=== PATIENT | male | born 1970 | race Caucasian/White ===

== ENCOUNTER 2018-10-14 18:30 | Emergency (ER) | payer SELFPAY ==
[2018-10-14 18:35] VITALS: BP 122/83; PULSE 90; RESP 15; TEMP 36.3; O2SAT 94
[2018-10-14 18:47] VITALS: RESP 16
[2018-10-14] MEDS: Normal Saline Flush 10 ML SYR IVP (19:16)
[2018-10-14] MEDS: Normal Saline 1,000 ML 1000 ML IV (19:16)
[2018-10-14 19:21] LABS: Abs Immature Grans 0.01 k/cumm (0.0-0.09); Absolute Basophil Count 0.05 k/cumm (0.0-0.2); Absolute Eosinophil Count 0.13 k/cumm (0.0-0.7); Absolute Lymphocyte Count 3.33 k/cumm (1.2-3.4); Basophils % 0.5; Eosinophils % 1.4; HGB 15.8 g/dL (13.5-17.5); Immature Grans % 0.1; Lymphocytes % 36.1; Mean Corp. HGB Concentration 35.1 g/dL (32.0-36.0); Mean Corpuscular Hemoglobin 31.5 pg (27.0-33.0); Mean Corpuscular Volume 89.8 fL (80-95); Mean Platelet Volume 9.1 fL (8.0-11.0); Monocytes % 11.9; Platelet Count 293 x1000/uL (130-400); RBC 5.01 m/cumm (4.50-6.00); RBC Distribution Width 11.8 % (11.8-14.1); White Blood Cell Count 9.22 k/cumm (4.4-10.8)
[2018-10-14 19:34] LABS: ALT 49 U/L (12-78); AST 36 U/L (15-37); Albumin 4.3 g/dL (3.4-5.0); Alkaline Phosphatase 62 U/L (46-116); Anion Gap 8.3 mmol/L (3-11); BUN 11 mg/dL (7-18); CO2 29.7 mmol/L (21.0-32.0); CREATININE 0.84 mg/dL (0.70-1.30); Calcium 9.5 mg/dL (8.5-10.1); Chloride 102 mmol/L (98-107); Glucose 121 mg/dL (70-100); Potassium 3.7 mmol/L (3.5-5.1); Sodium 140 mmol/L (136-145); Total Protein 7.8 g/dL (6.4-8.2)
[2018-10-14 19:43] LABS: Magnesium 1.9 mg/dL (1.8-2.4); TSH (W/Ref FT4) 1.62 uIU/mL (0.358-3.74)
[2018-10-14 19:53] LABS: ETHANOL BLOOD < 3.0 mg/dL (<3)
[2018-10-14 20:01] LABS: Acetaminophen < 2 ug/mL (10-30); Salicylate < 2.8 mg/dL (2.8-20.0)
[2018-10-14 21:27] LABS: Bilirubin Negative (Negative); Blood Negative (Negative); Clarity Clear; Glucose Negative (Negative); Ketones 40 mg/dL (Negative); Leukocyte Esterase Negative (Negative); Nitrite Negative (Negative); Urobilinogen 0.2 EU/dL (Up TO 0.2)
[2018-10-14 21:40] LABS: *AMPHETAMINES SCREEN URINE Negative (Negative); *BARBITURATES SCREEN URINE Negative (Negative); *BENZODIAZEPINES SCREEN URINE Negative (Negative); Cannabinoids THC POSITIVE (Negative); Cocaine Screen,Urine Negative (Negative); METHADONE URINE SCREEN Negative (Negative); OPIATES URINE SCREEN Negative (Negative)
[2018-10-14 21:47] LABS: Tricyclic Antidepressants Negative (Negative)
--- NOTE | 2018-10-14 21:47 | W.ED.GENAD ---
Discharge Plan Disposition Patient Disposition: HOME Condition: Improving Discharge Details Chief Complaint: AMS/LOC Clinical Impression: Acute stupor state due to acute stress reaction Primary Care Provider: Lalito Sierra ED Provider: Nithin Juarez Home Meds and New Rx's Prescriptions: No Action tamsulosin 0.4 MG capsule 0.4 mg PO BID RF: 0 Discharge Instructions Instructions: Anxiety (ED) Additional Instructions: Return to emergency department for any new or significant worsening of symptoms. Otherwise follow-up with your primary care provider for reassessment as needed Referrals: Lalito Sierra MD [Primary Care Provider] - Discharge Data Discharge Date/Time-TO BE ENTERED AT DEPARTURE: 10/14/18 21:53 Medical Decision Making Patient presenting to the emergency department for chief complaint of altered mental status. Patient significant other states that when she attempted to wake patient up after a nap for approximately 20 minutes after awaking he seemed altered and did not know who I was or where he was patient now presenting to the emergency department and states full memory, patient is alert and oriented, denies any medical complaints at this time. When patient is alone patient does state that this morning he was significantly depressed due to not being able to see his daughter recently and that he cried for 3 hours prior to taking a nap and is felt extremely anxious all day. Patient otherwise denies any other symptoms, any drug use, any alcohol use. Plan to check labs to rule out any organic source to patient's episode but highly suspicious of more of a psychotic event given patient's description of the days events, patient has completely benign exam with no physical exam findings no focal neurological deficits and given fully resolve symptoms I do not feel that head CT is warranted at this time. Pending results patient given IV fluids due to stating having some diarrhea couple days ago and not drinking much today but that symptoms have resolved. EKG performed by senior staff specialized employment per protocol was reviewed with Dr. Marshall and shows sinus rhythm, rate of 91, normal axis, no acute ST changes suggestive of ischemia Review of labs shows nondiagnostic findings, urinalysis unremarkable, urine drug screen also no worrisome findings and only positive for THC. Patient reassessed and is feeling better, continues to be asymptomatic, has no complaint of pain or discomfort, no focal neurological deficits noted. Given this I feel that this was an acute stress type reaction. Of notation is that patient left prior to receiving discharge paperwork. HPI General Date/Time Provider Initiated Documentation: 10/14/18 18:39. Limitations to Documentation: no limitations. Information obtained by: patient, family and RN notes reviewed. History of Present Illness 48 year old M presents to the emergency department with the chief complaint of Altered mental status, described as mild, Quality is described as other (Patient denies any pain or discomfort), Patient started experiencing this day(s) (Starting this morning) and it has been constant. No relieving factors improve symptom(s), No exacerbating factors reported . Patient notes no other symptoms.. Patient did receive the following treatments prior to arrival, none Related Data Home Medications Medication Instructions Recorded Confirmed tamsulosin 0.4 mg PO BID 04/11/17 10/14/18 Allergies Allergy/AdvReac Type Severity Reaction Status Date / Time No Known Allergies Allergy Unverified 10/14/18 18:45 General Stated Complaint: AMS/LOC CLIFFORD: 2 Review of Systems Constitutional Denies body ache(s), Denies chills, Denies fever(s), Denies frequent falls and Denies headache(s) ENT Denies dizziness and Denies headache(s) Cardiovascular Denies chest pain, Denies syncope and Denies dyspnea Respiratory Denies dyspnea Gastrointestinal Denies abdominal pain, Denies nausea and Denies vomiting Musculoskeletal Denies tingling Integumentary/Breasts Denies rash Neurologic Reports confusion, Denies dizziness, Denies syncope, Denies frequent falls, Denies headache(s), Denies lack of coordination, Denies seizure-like activity, Denies sensory deficit, Denies tingling and Denies tremor(s) Psychiatric Reports anxiety, Reports confusion and Reports depression [facility] Social History Smoking/Tobacco Use Status: Current every day Exam Const General: cooperative, no acute distress and not ill appearing Orientation: alert, awake and oriented x3 HENMT Head: normal to inspection, normocephalic and atraumatic Ears: hearing grossly normal bilaterally, external ears normal and TM's normal bilaterally General nose exam: external nose normal Face and sinus: normal facial exam Mouth: moist mucous membranes Throat: posterior oropharynx normal, tonsils normal and uvula midline Eyes General: appearance normal, both eyes and all related structures Neck Neck: normal visual inspection, full ROM, no lymphadenopathy, no meningeal signs, trachea midline and supple Resp Effort & Inspection: normal respiratory effort, able to speak in complete sentences and no respiratory distress Auscultation: clear to auscultation bilaterally Cardio Rate: regular rate Rhythm: regular rhythm Heart Sounds: S1 normal, S2 normal, no click, no gallops, no murmurs and no rubs GI Inspection: normal to inspection Palpation: soft, no hepatosplenomegaly and nontender Auscultation: normal bowel sounds Skin General skin exam: no rashes or lesions noted Neuro General: alert, awake, oriented x3, gait normal, tone normal, moves all extremities, no meningeal signs, no focal motor deficits, CN's II-XI intact bilaterally and not confused Cognition: normal cognition Speech: speech normal Gait: normal gait Motor: muscle tone normal throughout, strength 5/5 throughout, no pronator drift, no movement abnormalities noted and no fasciculations Sensory Exam: no sensory deficits noted Coordination: [id number] test normal, [id number] test normal, Romberg test normal, tandem gait normal and Does not sway with eyes open Course Vital Signs Temperature 36.3 C L 10/14/18 18:35 Pulse 90 10/14/18 18:35 Respiratory Rate 15 10/14/18 18:35 Blood Pressure 122/83 10/14/18 18:35 Pulse Oximetry 94 L 10/14/18 18:35 Temperature 36.3 C L 10/14/18 18:35 Temperature Source Temporal Artery Scan 10/14/18 18:35 Pulse 90 10/14/18 18:35 Respiratory Rate 16 10/14/18 18:47 Respiratory Effort Non-Labored 10/14/18 18:47 Respiratory Depth Normal 10/14/18 18:47 Respiratory Pattern Normal 10/14/18 18:47 Blood Pressure 122/83 10/14/18 18:35 Blood Pressure Position Supine 10/14/18 18:35 Pulse Oximetry 94 L 10/14/18 18:35 Oxygen Delivery Method Room Air 10/14/18 18:35 Oxygen Flow Rate 0 10/14/18 18:35 Pain Level 8 10/14/18 18:35 Lab/Test Results Lab/Test Results: Laboratory Tests Range/Units 10/14/18 10/14/18 10/14/18 19:00 19:00 19:00 WBC (4.4-10.8) k/cumm 9.22 RBC (4.50-6.00) m/cumm 5.01 Hgb (13.5-17.5) g/dL 15.8 Hct (40.0-50.0) % 45.0 MCV (80-95) fL 89.8 MCH (27.0-33.0) pg 31.5 MCHC (32.0-36.0) g/dL 35.1 RDW (11.8-14.1) % 11.8 Plt Count (130-400) x1000/uL 293 MPV (8.0-11.0) fL 9.1 Immature Gran % 0.1 Neutrophils % 50.0 Lymphocytes % 36.1 Monocytes % 11.9 Eosinophils % 1.4 Basophils % 0.5 Absolute Neutrophils (1.2-6.7) k/cumm 4.60 Absolute Lymphocytes (1.2-3.4) k/cumm 3.33 Absolute Monocytes (0.11-0.7) k/cumm 1.10 H Absolute Eosinophils (0.0-0.7) k/cumm 0.13 Absolute Basophils (0.0-0.2) k/cumm 0.05 Sodium (136-145) mmol/L 140 Potassium (3.5-5.1) mmol/L 3.7 Chloride (98-107) mmol/L 102 Carbon Dioxide (21.0-32.0) mmol/L 29.7 Anion Gap (3-11) mmol/L 8.3 BUN (7-18) mg/dL 11 Creatinine (0.70-1.30) mg/dL 0.84 Estimated GFR/1.73 m2 (mL/min/1.73m2) >= 60.00 Glucose (70-100) mg/dL 121 H Calcium (8.5-10.1) mg/dL 9.5 Magnesium (1.8-2.4) mg/dL 1.9 Total Bilirubin (0.2-1.0) mg/dL 1.0 AST (15-37) U/L 36 ALT (12-78) U/L 49 Alkaline Phosphatase (46-116) U/L 62 Total Protein (6.4-8.2) g/dL 7.8 Albumin (3.4-5.0) g/dL 4.3 TSH (0.358-3.74) uIU/mL 1.62 Urine Color (Yellow) Urine Clarity Urine pH (5-8) Ur Specific [place] (1.005-1.025) Urine Protein (Negative) mg/dL Urine Ketones (Negative) mg/dL Urine Blood (Negative) Urine Nitrite (Negative) Urine Bilirubin (Negative) Urine Urobilinogen (Up TO 0.2) EU/dL Ur Leukocyte Esterase (Negative) Urine Glucose (Negative) mg/dL Salicylates (2.8-20.0) mg/dL Acetaminophen (10-30) ug/mL Ethyl Alcohol (<3) mg/dL Range/Units 10/14/18 10/14/18 10/14/18 19:00 19:00 21:17 WBC (4.4-10.8) k/cumm RBC (4.50-6.00) m/cumm Hgb (13.5-17.5) g/dL Hct (40.0-50.0) % MCV (80-95) fL MCH (27.0-33.0) pg MCHC (32.0-36.0) g/dL RDW (11.8-14.1) % Plt Count (130-400) x1000/uL MPV (8.0-11.0) fL Immature Gran % Neutrophils % Lymphocytes % Monocytes % Eosinophils % Basophils % Absolute Neutrophils (1.2-6.7) k/cumm Absolute Lymphocytes (1.2-3.4) k/cumm Absolute Monocytes (0.11-0.7) k/cumm Absolute Eosinophils (0.0-0.7) k/cumm Absolute Basophils (0.0-0.2) k/cumm Sodium (136-145) mmol/L Potassium (3.5-5.1) mmol/L Chloride (98-107) mmol/L Carbon Dioxide (21.0-32.0) mmol/L Anion Gap (3-11) mmol/L BUN (7-18) mg/dL Creatinine (0.70-1.30) mg/dL Estimated GFR/1.73 m2 (mL/min/1.73m2) Glucose (70-100) mg/dL Calcium (8.5-10.1) mg/dL Magnesium (1.8-2.4) mg/dL Total Bilirubin (0.2-1.0) mg/dL AST (15-37) U/L ALT (12-78) U/L Alkaline Phosphatase (46-116) U/L Total Protein (6.4-8.2) g/dL Albumin (3.4-5.0) g/dL TSH (0.358-3.74) uIU/mL Urine Color (Yellow) Yellow Urine Clarity Clear Urine pH (5-8) 6.0 Ur Specific [place] (1.005-1.025) 1.020 Urine Protein (Negative) mg/dL Negative Urine Ketones (Negative) mg/dL 40 H Urine Blood (Negative) Negative Urine Nitrite (Negative) Negative Urine Bilirubin (Negative) Negative Urine Urobilinogen (Up TO 0.2) EU/dL 0.2 Ur Leukocyte Esterase (Negative) Negative Urine Glucose (Negative) mg/dL Negative Salicylates (2.8-20.0) mg/dL < 2.8 L Acetaminophen (10-30) ug/mL < 2 L Ethyl Alcohol (<3) mg/dL < 3.0
== END 2018-10-14 21:53 | disposition home or self-care (01) ==
PROVIDERS: Emergency Provider Nurse Practitioner Family; PCP General Practice
DX: F43.0 Acute stress reaction (principal); Z63.79 Other stressful life events affecting family and household
CPT/HCPCS: 36415; 36416; 80053; 80307; 82962; 93005; 96361; 99284; 80320; 80329; 81003; 83735; 84443; 85025; 93010

== ENCOUNTER 2018-11-02 12:46 | Outpatient (REF) | payer MEDICAID, SELFPAY ==
[2018-11-02 13:18] LABS: Absolute Basophil Count 0.06 k/cumm (0.0-0.2); Absolute Lymphocyte Count 2.59 k/cumm (1.2-3.4); Absolute Monocyte Count 0.76 k/cumm (0.11-0.7); Absolute Neutrophil Count 4.18 k/cumm (1.2-6.7); Basophils % 0.8; Eosinophils % 1.3; HCT 43.9 % (40.0-50.0); Lymphocytes % 33.7; Mean Corp. HGB Concentration 34.2 g/dL (32.0-36.0); Mean Corpuscular Hemoglobin 32.5 pg (27.0-33.0); Mean Platelet Volume 9.2 fL (8.0-11.0); Monocytes % 9.9; Neutrophils % 54.3; Platelet Count 365 x1000/uL (130-400); RBC 4.62 m/cumm (4.50-6.00); RBC Distribution Width 12.1 % (11.8-14.1); White Blood Cell Count 7.69 k/cumm (4.4-10.8)
[2018-11-02 13:32] LABS: ALT 38 U/L (12-78); AST 29 U/L (15-37); Albumin 4.1 g/dL (3.4-5.0); Alkaline Phosphatase 77 U/L (46-116); Anion Gap 7.4 mmol/L (3-11); BUN 14 mg/dL (7-18); Bilirubin, Total 0.7 mg/dL (0.2-1.0); CO2 28.6 mmol/L (21.0-32.0); Calcium 9.2 mg/dL (8.5-10.1); Chloride 103 mmol/L (98-107); Glucose 107 mg/dL (70-100); Potassium 4.5 mmol/L (3.5-5.1); Sodium 139 mmol/L (136-145); TSH (W/Ref FT4) 1.15 uIU/mL (0.358-3.74); Total Protein 7.3 g/dL (6.4-8.2)
[2018-11-03 11:58] LABS: Hep B Core Antibody Negative (NEGAT); Hepatitis B Surface Ag Negative (NEGAT)
[2018-11-03 12:01] LABS: HIV-1/2 Ag & Ab Screen Negative (NEGAT)
[2018-11-03 15:41] LABS: Hepatitis A IgM Ab Negative (Negative)
== END 2018-11-02 13:06 ==
LOC: NCHCN 12:46
PROVIDERS: PCP General Practice; Visit Provider Nurse Practitioner Family
DX: B18.2 Chronic viral hepatitis C (principal); Z11.4 Encounter for screening for human immunodeficiency virus [HIV]
CPT/HCPCS: 80053; 86704; 86803; 87340; 87389; 84443; 85025; 86709; 87522

== ENCOUNTER 2018-11-13 14:17 | Outpatient (REF) | payer MEDICAID, SELFPAY ==
[2018-11-15 10:55] LABS: HBs Antibody, Quant <3.1 mIU/mL; Hepatitis B Surface Ab Negative
[2018-11-15 11:20] LABS: Hep A Total Ab w Rflx IgM Positive (NEGAT)
[2018-11-15 22:04] LABS: HCV Genotype 1a (Undetected)
[2018-11-17 09:16] LABS: ALT 29 U/L (7-55); ActiTest Grade A0; ActiTest Interpretation no activity; ActiTest Score 0.13; Alpha-2-Macroglobulin 274 mg/dL (100 - 280); Apoliprotein A1 173 mg/dL (>=120); Bilirubin, Total 0.3 mg/dL (<=1.2); FibroTest Interpretation minimal fibrosis; FibroTest Score 0.28; FibroTest Stage F1; GGT 94 U/L (8 - 61); Haptoglobin 167 mg/dL (30 - 200)
[2018-11-20 09:54] LABS: Hep A Antibody IgM Negative (NEGAT)
== END 2018-11-13 14:37 ==
LOC: NCHCN 14:17
PROVIDERS: PCP General Practice; Visit Provider Family Medicine
DX: B18.2 Chronic viral hepatitis C (principal)
CPT/HCPCS: 82172; 82247; 82977; 83010; 83883; 84460; 86706; 86709; 87521

== ENCOUNTER 2018-12-13 16:39 | Outpatient (REF) | payer MEDICAID, SELFPAY ==
[2018-12-13 20:22] LABS: Bilirubin Negative (Negative); Blood Negative (Negative); Clarity Cloudy; Glucose Negative (Negative); Ketones Negative (Negative); Leukocyte Esterase Negative (Negative); Nitrite Negative (Negative); Specific Gravity >= 1.030 (1.005-1.025); Urobilinogen 0.2 EU/dL (Up TO 0.2); pH 5.5 (5-8)
[2018-12-15 13:42] LABS: Chlamydia Result Negative; GC Result Negative; Specimen Description URINE
== END 2018-12-13 16:59 ==
LOC: NCHCN 16:39
PROVIDERS: PCP General Practice; Visit Provider Family Medicine
DX: R35.0 Frequency of micturition (principal); R30.0 Dysuria
CPT/HCPCS: 87491; 87591; 81003

== ENCOUNTER 2018-12-25 01:00 | Outpatient (CLI) | payer MEDICAID, SELFPAY ==
--- NOTE | 2018-12-25 08:32 | DI.US_ITS ---
SYMPTOM/DIAGNOSIS: URINARY FREQUENCY, R35.0 RENAL ULTRASOUND: Routine examination. Comparison is made with CT scan of 12/22/16. The right kidney measures 11.6 cm. long. The left kidney measures 11.1 cm. long. No renal mass, calculus or obstruction is seen. There is blood flow to both kidneys. The prevoid urinary bladder volume is 146 cc's. The bladder wall appeared smooth. No intraluminal masses are visualized. Both ureteral jets were visualized. The postvoid urinary bladder volume is 33 cc's. Prostatic volume is 87 cc's. Calcifications were seen in the prostate gland. IMPRESSION: 1. Small postvoid urinary bladder residual. 2. Enlarged prostate gland.
== END 2018-12-25 01:20 ==
PROVIDERS: PCP General Practice; Visit Provider Family Medicine
DX: R35.0 Frequency of micturition (principal); N40.0 Benign prostatic hyperplasia without lower urinary tract symptoms; R39.198 Other difficulties with micturition
CPT/HCPCS: 76770

== ENCOUNTER 2019-01-02 13:48 | Outpatient (REF) | payer MEDICAID, SELFPAY ==
[2019-01-02 18:56] LABS: HCT 44.7 % (40.0-50.0); Mean Corp. HGB Concentration 33.6 g/dL (32.0-36.0); Mean Corpuscular Hemoglobin 31.8 pg (27.0-33.0); Mean Corpuscular Volume 94.9 fL (80-95); Mean Platelet Volume 9.6 fL (8.0-11.0); Platelet Count 386 x1000/uL (130-400); RBC 4.71 m/cumm (4.50-6.00); RBC Distribution Width 12.1 % (11.8-14.1); White Blood Cell Count 10.15 k/cumm (4.4-10.8)
[2019-01-02 19:03] LABS: ALT 15 U/L (12-78); AST 18 U/L (15-37); Albumin 4.1 g/dL (3.4-5.0); Alkaline Phosphatase 92 U/L (46-116); Anion Gap 9.2 mmol/L (3-11); BUN 12 mg/dL (7-18); Bilirubin, Total 0.4 mg/dL (0.2-1.0); CO2 28.8 mmol/L (21.0-32.0); CREATININE 1.03 mg/dL (0.70-1.30); Calcium 9.2 mg/dL (8.5-10.1); Chloride 101 mmol/L (98-107); Glucose 110 mg/dL (70-100); Potassium 4.4 mmol/L (3.5-5.1); Sodium 139 mmol/L (136-145); Total Protein 7.3 g/dL (6.4-8.2)
[2019-01-04 16:24] LABS: HCV RNA Detection Quantitative 52 IU/mL (UNDECT)
== END 2019-01-02 14:08 ==
LOC: NCHCN 13:48
PROVIDERS: PCP General Practice; Visit Provider Family Medicine
DX: B18.2 Chronic viral hepatitis C (principal)
CPT/HCPCS: 80053; 85027; 87522

== ENCOUNTER 2019-07-06 18:21 | Outpatient (REF) | payer MEDICAID, SELFPAY ==
[2019-07-06 19:11] LABS: HCT 41.8 % (40.0-50.0); HGB 14.2 g/dL (13.5-17.5); Mean Corpuscular Volume 94.1 fL (80-95); Mean Platelet Volume 8.9 fL (8.0-11.0); Platelet Count 380 x1000/uL (130-400); RBC 4.44 m/cumm (4.50-6.00); RBC Distribution Width 12.2 % (11.8-14.1); White Blood Cell Count 8.99 k/cumm (4.4-10.8)
[2019-07-06 19:28] LABS: ALT 18 U/L (16-63); AST 19 U/L (15-37); Albumin 4.1 g/dL (3.4-5.0); Alkaline Phosphatase 83 U/L (46-116); Anion Gap 10.9 mmol/L (3-11); BUN 18 mg/dL (7-18); Bilirubin, Total 0.3 mg/dL (0.2-1.0); CO2 26.1 mmol/L (21.0-32.0); CREATININE 0.97 mg/dL (0.70-1.30); Calcium 9.3 mg/dL (8.5-10.1); Chloride 104 mmol/L (98-107); Glucose 105 mg/dL (70-100); Sodium 141 mmol/L (136-145); TSH (W/Ref FT4) 1.33 uIU/mL (0.36-3.74); Total Protein 7.2 g/dL (6.4-8.2)
[2019-07-09 10:12] LABS: HIV-1/2 Ag & Ab Screen Negative (NEGAT)
[2019-07-09 13:02] LABS: Syphilis Serology (RPR) Negative (Negative)
[2019-07-09 14:17] LABS: HCV RNA Detection Quantitative Undetected IU/mL (UNDECT)
== END 2019-07-06 18:41 ==
LOC: NCHCN 18:21
PROVIDERS: PCP General Practice; Visit Provider Family Medicine
DX: B18.2 Chronic viral hepatitis C (principal); F22 Delusional disorders; F11.20 Opioid dependence, uncomplicated; Z11.4 Encounter for screening for human immunodeficiency virus [HIV]; R63.4 Abnormal weight loss
CPT/HCPCS: 80053; 85027; 87389; 84443; 86592; 87522

== ENCOUNTER 2020-05-19 15:30 | Outpatient (REF) | payer SELFPAY ==
[2020-05-22 15:35] LABS: SARS-CoV-2 RNA Undetected (Undetected); SARS-CoV-2 Specimen Source Nasopharynx
== END 2020-05-19 15:50 ==
LOC: NCHCN 15:30
PROVIDERS: PCP General Practice; Visit Provider Nurse Practitioner Family
DX: J02.9 Acute pharyngitis, unspecified (principal)
CPT/HCPCS: U0003

== ENCOUNTER 2021-03-19 03:40 | Emergency (ER) | payer SELFPAY ==
[2021-03-19 03:38] VITALS: BP 128/74; PULSE 91; RESP 16; TEMP 37.5; O2SAT 96
[2021-03-19 03:46] VITALS: RESP 18
--- NOTE | 2021-03-19 03:50 | W.ED.GENAD ---
Discharge Plan Disposition Patient Disposition: HOME Condition: Good Discharge Details Clinical Impression: Accidental overdose Primary Care Provider: Juan Carlos Carpenter ED Provider: Bayron Ac Home Meds and New Rx's Prescriptions: Continued tamsulosin 0.4 MG capsule 0.4 mg PO BID RF: 0 Discharge Instructions Instructions: Naloxone (Into the nose) Additional Instructions: As we discussed together it would benefit your life if you stop taking heroin or cocaine. Please use the help and resources from the recovery coaches to conquer these challenges. You have been given Narcan to use at home if this scenario ever happens again. If you notice any worsening of your symptoms, or any new symptoms such as vomiting, diarrhea, fever, chills, shortness of breath, chest pain, numbness, weakness, or fainting , please return immediately to the emergency department for reevaluation. Please follow up with your primary care provider as soon as possible for reassessment and reevaluation. As always, it was a pleasure participating in your medical care today. Referrals: Juan Carlos Carpenter [Primary Care Provider] - Medical Decision Making 51-year-old male with past medical history of illicit drug use presents today for evaluation of overdose. Patient states that this evening he was snorting some heroin, and next he knew he was being woken up by his significant other after being given Narcan. Patient states that he did not intend to harm himself. He states that he has never overdosed before. He does admit to occasionally taking cocaine and does admit to smoking yesterday. But he denies any problems with that. Patient was given Narcan intranasal by his significant other. Upon EMS arrival the patient was ANO x4, no acute distress, and acting normally. Patient came to the ER for further assessment. Patient has no complaints at this time. He is requesting help with a counseling service for drug use. Physical exam is unremarkable. Patient continues to have no homicidal or suicidal ideations. No indication for further emergent labs or imaging at this time. We will monitor the patient here in the ER to note for any signs of decompensation after the Narcan wears off. We will give him Narcan to go home with, and we have contacted our recovery coaches to discuss the patient's current predicament. 4:50 AM Patient was reassessed after prolonged observation., he is doing notably well, shows no signs of altered mental status, respiratory depression, or other concerning abnormality. He is being given Narcan dispensers to go. Discussed red flags which to return. Patient stable for discharge. I have extensively reviewed the treatment plan and discharge instructions with the patient. I have addressed all patient concerns at this time. The patient was made aware of what symptoms to monitor for that would warrant a return to the emergency department. Discussed the plan with the patient, they demonstrate verbal understanding and agreement with our assessment and plan at this time. The documentation in this chart was dictated using [employer] dictation software. Please excuse any dictation errors. HPI General Date/Time Provider Initiated Documentation: 03/19/21 03:48. HPI Narrative: 51-year-old male with past medical history of illicit drug use presents today for evaluation of overdose. Patient states that this evening he was snorting some heroin, and next he knew he was being woken up by his significant other after being given Narcan. Patient states that he did not intend to harm himself. He states that he has never overdosed before. He does admit to occasionally taking cocaine and does admit to smoking yesterday. But he denies any problems with that. Patient was given Narcan intranasal by his significant other. Upon EMS arrival the patient was ANO x4, no acute distress, and acting normally. Patient came to the ER for further assessment. Patient has no complaints at this time. He is requesting help with a counseling service for drug use. Related Data Home Medications Medication Instructions Recorded Confirmed tamsulosin 0.4 mg PO BID 04/11/17 10/14/18 Allergies Allergy/AdvReac Type Severity Reaction Status Date / Time No Known Allergies Allergy Unverified 10/14/18 18:45 General Stated Complaint: OD/Poison CLIFFORD: 3 Review of Systems All systems reviewed & are unremarkable except as noted in HPI and below [facility] Social History Smoking/Tobacco Use Status: Current every day Smoking risk assessment performed?: Yes Alcohol Intake: never Drug use: Daily Substance use type: crack/cocaine and heroin Do you feel safe at home: Yes Do you feel safe in your relationship?: Yes Exam Narrative Exam Narrative: 1.Const: Well-nourished, Well-developed, appearing stated age 2.Eyes: PERRL, no conjunctival injection, and symmetrical lids. 3.ENT: Atraumatic external nose and ears. Moist MM. Neck: Symmetric, trachea midline, No thyromegaly. 4.CVS: +S1/S2, No murmurs or gallops. Peripheral pulses 2+ and equal in all extremities. Brisk capillary refill in all extremities. 5.RESP: Unlabored respiratory effort. Clear to auscultation bilaterally. No wheezes rales or rhonchi 6.GI: Soft, Nontender/Nondistended, No hepatosplenomegaly. No guarding or rebound. 7.MSK: Normocephalic/Atraumatic, Extremities w/o deformity or ttp No cyanosis or clubbing, Normal movement of all extremities 8.Skin: Warm, Dry. No rashes or lesions. 9.Neuro: patent litigation associate II-XII grossly intact. Sensation grossly intact, no focal neurologic deficits. 10.Psych: (AAO) x3. Appropriate mood and affect . Course Vital Signs Vital signs: Vital Signs Temperature 37.5 C 03/19/21 03:38 Pulse 91 H 03/19/21 03:38 Respiratory Rate 16 03/19/21 03:38 Blood Pressure 128/74 03/19/21 03:38 Pulse Oximetry 96 03/19/21 03:38 Temperature 37.5 C 03/19/21 03:38 Temperature Source Temporal Artery Scan 03/19/21 03:38 Pulse 91 H 03/19/21 03:38 Respiratory Rate 18 03/19/21 03:46 Respiratory Effort Non-Labored 03/19/21 03:46 Respiratory Pattern Normal 03/19/21 03:46 Blood Pressure 128/74 03/19/21 03:38 Pulse Oximetry 96 03/19/21 03:38 Oxygen Delivery Method Room Air 03/19/21 03:38 Oxygen Flow Rate 0 03/19/21 03:38 Pain Level 0 03/19/21 03:38
[2021-03-19 04:50] VITALS: BP 128/74; PULSE 91; RESP 18; TEMP 37.5; O2SAT 96
--- NOTE | 2021-03-19 08:38 | NUR.NOTE ---
Addendum entered by Tomeka Zapien 03/19/21 13:46: Tried multiple times today to reach patient. At first the phone went straight to full mailbox, now it is going to voicemail for Chely. I did not leave a message. Mailed the discharge instructions to the patient and restocked the Narcan by Alia Oshae RN. Tomeka Zapien Original Note: Nursing Note: Environmental services found the patient's discharge instructions and Narcan in the waiting room. Attempted to call the patient but he did not answer the phone and there is not voice mailbox for the phone. Tomeka Zapien
== END 2021-03-19 04:44 | disposition home or self-care (01) ==
PROVIDERS: Emergency Provider Student in an Organized Health Care Education/Training Program; PCP Family Medicine
DX: T40.1X1A Poisoning by heroin, accidental (unintentional), initial encounter (principal)
CPT/HCPCS: 99283

== ENCOUNTER 2024-10-04 12:29 | Emergency (ER) | payer MEDICAID, SELFPAY ==
[2024-10-04 12:31] VITALS: BP 117/78; PULSE 94; RESP 20; TEMP 36.7; O2SAT 94
[2024-10-04] MEDS: Bupivacaine 0.5% Pres-Free 30 ML VIAL IJ (13:34)
--- NOTE | 2024-10-05 22:33 | ED.GENADUL_ITS ---
Discharge Plan Disposition Patient Disposition: Home Condition: Stable Discharge Details Clinical Impression: Pain, dental Primary Care Provider: Unknown,Unknown ED Provider: Sarah Henry Home Meds and New Rx's Prescriptions: New penicillin V potassium 500 mg tablet 500 mg PO BID 10 Days Qty: 20 0RF Continued buprenorphine-naloxone [Suboxone] 8-2 mg film 2 film sublingual DAILY Rx Instructions: place 1 strip/tab under (each) side of tongue Discharge Instructions Instructions: Dental Pain Additional Instructions: Take antibiotic as prescribed, yogurt daily while on antibiotic Soft foods regular liquids only [facility] has a first come first serve clinic, I recommend following up here as your appointment is not until November Motrin Tylenol as needed for pain Discharge Data Discharge Date/Time-TO BE ENTERED AT DEPARTURE: 10/04/24 13:44 HPI General Date/Time Provider Initiated Documentation: 10/04/24 12:48 . HPI Narrative: This 54-year-old male presents with left upper dental pain. History of similar intermittent pain in the past. Has an appointment scheduled on December 10 for extraction. Concerned as his pain is significant. Denies any difficulty swallowing, chest pain, shortness of breath. Related Data Home Medications ?Medication ?Instructions ?Recorded ?Confirmed buprenorphine 8 mg-naloxone 2 mg 2 film sublingual DAILY 10/04/24 10/04/24 sublingual film (Suboxone) penicillin V potassium 500 mg 500 mg PO BID 10 days #20 tabs 10/04/24 tablet Previous Rx's ?Medication ?Instructions ?Recorded penicillin V potassium 500 mg 500 mg PO BID 10 days #20 tabs 10/04/24 tablet Allergies Allergy/AdvReac Type Severity Reaction Status Date / Time No Known Allergies Allergy Verified 10/04/24 12:44 General Stated Complaint: DentalOral CLIFFORD: 4 Exam Narrative Exam Narrative: Alert and oriented 54-year-old male in no acute distress, oropharynx patent without soft palate induration or evidence of deep space infection patient's second premolar is quite loose and has some mild swelling surrounding it, there is no drainage noted, no facial swelling appreciated. Course Vital Signs Vital signs: Vital Signs Temperature 36.7 C 10/04/24 12:31 Pulse 94 H 10/04/24 12:31 Respiratory Rate 20 10/04/24 12:31 Blood Pressure 117/78 10/04/24 12:31 Pulse Oximetry 94 10/04/24 12:31 Temperature 36.7 C 10/04/24 12:31 Temperature Source Oral 10/04/24 12:31 Pulse 94 H 10/04/24 12:31 Respiratory Rate 20 10/04/24 12:31 Blood Pressure 117/78 10/04/24 12:31 Blood Pressure Position Sitting 10/04/24 12:31 Pulse Oximetry 94 10/04/24 12:31 Oxygen Delivery Method Room Air 10/04/24 12:31 Oxygen Flow Rate 0 10/04/24 12:31 Pain Level 10 10/04/24 12:48 Procedures Nerve Block Nerve Block 1: Local Anesthetic: Bupivicaine 0.25% Amount of anesthesia used (mL): 33 Side: left Intraoral Nerve Block: superior alveolar Procedure Successful: Yes Patient Tolerated Procedure: well Complications: none Medical Decision Making 54-year-old male with second premolar quite loose on the left side, possible evidence of secondary infection, will place on penicillin. Superior alveolar block performed with good effect. I did call patient's dentist as I was hoping to establish an earlier appointment however they are unable to see patient till this time. He was encouraged to call [facility] to see what time they first come first serve exams available. Patient shows no evidence of [place] angina. Return precautions reviewed and patient expressed understanding Quality:SDOH Health Related Social Needs: No Data to Display PFSH All Active Problems (Updated 10/04/24 @ 13:34 by SHERITA Ocasio) Pain, dental (Acute) Accidental overdose (Acute) Social History Smoking/Tobacco Use Status: Current every day Tobacco Type: cigarettes Years smoked: 43 Smoking risk assessment performed?: Yes Alcohol Intake: never Drug use: Current Sobriety Substance use type: crack/cocaine and heroin Housing: apartment Do you feel safe at home: Yes Do you feel safe in your relationship?: Yes
== END 2024-10-04 13:44 | disposition home or self-care (01) ==
PROVIDERS: Emergency Provider Physician Assistant
DX: K08.89 Other specified disorders of teeth and supporting structures (principal); F17.210 Nicotine dependence, cigarettes, uncomplicated
CPT/HCPCS: 64400; 99284; 99283; J0665

== ENCOUNTER → 2025-09-18 01:23 | Outpatient (CLI) | payer MEDICAID, SELFPAY ==
--- NOTE | 2025-09-18 | DI.RAD_ITS ---
Exam(s) XR HIP RT COMPLETE AP PELVIS EXAM: XR HIP RT COMPLETE AP PELVIS CLINICAL HISTORY: PAIN IN R HIP, M25.551. TECHNIQUE: 2D digital imaging was performed of the right hip. Two images were obtained. AP pelvis and lateral right hip views were obtained. COMPARISON: [facility] from 11/18/2016 FINDINGS: BONES: No acute fracture is present. No bony destructive lesion is seen. There is a small bump at the junction of the head and neck of the right femur which can be seen with femoral acetabular impingement. JOINTS: No dislocation present. The hip joints are well maintained. There are degenerative changes seen in the lower lumbar spine and at the sacroiliac joints. The symphysis pubis is unremarkable. SOFT TISSUE: Normal. IMPRESSION: 1. Small bump at the junction of the head and neck of the right femur which can be seen with DOMINGA. 2. Mild degenerative changes seen in the lower lumbar spine in the sacroiliac joints. DATA REPOSITORY: RADIATION DOSE DELIVERED:
== END ==
PROVIDERS: PCP Nurse Practitioner Family; Visit Provider Nurse Practitioner Family
DX: M25.551 Pain in right hip (principal); M51.360 Other intervertebral disc degeneration, lumbar region with discogenic back pain only
CPT/HCPCS: 73502